=== PATIENT | female | born 1955 | race Caucasian/White ===

== ENCOUNTER → 2017-06-17 | Outpatient (CLI) | payer BC ==
[2015-03-03 16:50] VITALS: BP 137/67
--- NOTE | 2017-06-17 14:42 | MRI ---
MRI SPINE LUMBAR WITHOUT CONTRAST CLINICAL HISTORY: 62-year-old female with low back pain and bilateral radicular symptoms. COMPARISON: None. Technique: Multiplanar, multisequence MRI images of the lumbar spine were obtained without the admin istration of contrast. FINDINGS: The most caudad, fully-formed intervertebral disc will be labeled L5-S1 for the purpose of this dictation. Straightening of the lumbar lordosis as imaged. Alignment is maintained. Vertebral beronica dy heights are preserved with type 2 endplate changes anteriorly L2-L4 and posteriorly L5-S1. Remaini ng marrow signal is normal. Mild loss of disc signal L5-S1 with remaining disc height and signal pres erved. Cord signal is normal. The conus medullaris is normal in signal characteristics and morphology and terminates at the L2-L3 level. T11-T12: No central canal or neural foraminal stenosis. T12-L1: No central canal or neural foraminal stenosis. L1-L2: Mild symmetric disc bulge and facet hypertrophy without central canal or neural foraminal sten osis. L2-L3: Moderate symmetric disc bulge with mild facet hypertrophy without central canal or neural fora yenny stenosis. L3-L4: Large symmetric disc bulge with moderate to severe facet hypertrophy and thickening of the lig amentum flavum. Disc bulge contacts the ventral aspect of the exiting right L3 nerve root. No signifi cant central canal or neural foraminal stenosis. L4-L5: Large symmetric disc bulge with severe facet hypertrophy and thickening of ligamentum flavum. Moderate bilateral subarticular recess stenosis with mild bilateral neural foraminal stenosis. Disc b ulge and focal flavum contact the ventral dorsal aspect of the exiting L4 nerve roots bilaterally. Di sc bulge contacts the ventral aspect of the transiting L5 nerve roots bilaterally. L5-S1: Report large symmetric disc bulge with severe facet hypertrophy and thickened flavum combine t o produce severe bilateral subarticular recess stenosis with moderate bilateral neural foraminal sten osis. There is contact of the dorsal aspects of the exiting L5 nerve roots bilaterally as well as the bilateral dorsal aspect the transiting S1 nerve roots. Paraspinous soft tissues are unremarkable. IMPRESSION: 1. 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 2. See level by level descriptions above. Reported By:
== END | disposition home or self-care (01) | DRG 552 ==
LOC: RAD 12:28
PROVIDERS: ATTEND Internal Medicine
DX: M51.16 Intervertebral disc disorders with radiculopathy, lumbar region (principal); M51.26 Other intervertebral disc displacement, lumbar region; M48.061 Spinal stenosis, lumbar region without neurogenic claudication
CPT/HCPCS: 72148

== ENCOUNTER 2017-07-08 19:21 | Emergency (ER) | payer BC ==
[2017-07-08 19:26] VITALS: BMI 30.7
[2017-07-08] MEDS ORDERED: ZOFRAN INJ 4 MG VIAL IVP ONE (20:17)
[2017-07-08] MEDS ORDERED: NORFLEX INJ IM ONE (20:17)
[2017-07-08] MEDS ORDERED: MORPHINE SULFATE INJ 4 MG IVP ONE (20:17)
--- NOTE | 2017-07-08 20:21 | DR.GENAD ---
HPI - HPI Comment HPI Comment: HISTORY BELOW. - Complaint/Symptoms Chief Complaint Doctors Comments: EASY BRUISING AND SKIN TEAR RT HAND. PAIN AND NUMBNESS EXTREMITIES AND LOW BACK PAQIN. WORSE TODAY. BP ELEVATED. Chief Complaint:: PT STATES THAT SHE HAS "BRUISES AND SCRAPES" ALL OVER HER ARMS. BRUISES NOTED ON BILATERAL ARMS AND SKIN TEAR NOTED ON LT ANTERIOR HAND. PT C/O RT ARM BEING NUMB. PT STATES THAT SHE HAS BEEN HAVING THIS PROBLEM FOR MONTHS AND HER PCP TOLD HER IT WAS BECAUSE HER SKIN IS SO THIN. PT STATES SHE HAS BEEN WORKING AT THE [employer] FOR 3 DAYS AND NOW HER BACK HURTS HAD MRI 3 WEEKS AGO AND WAS TOLD SHE HAD BULGING DISCS AND HAS BEEN UNABLE TO GET FOLLOW UP. Self Treatment fo Chief Complaint: PT STATES THAT SHE DID TAKE HER LISINOPRIL THIS AM - Nurses notes reviewed Nurses Notes Review: Yes - Source History Provided: Patient - Mode of Arrival Mode of Arrival: Ambulatory - Timing Onset of Chief Complaint: 07/08/17 Came on: Suddenly - Duration Duration: Constant Duration: Hours - Severity Severity: Moderate PMH - PMH Past Medical History: Yes Past Medical History: Anxiety, Arthritis, Depression, Dyslipidemia, GERD, Hypertension Past Surgical History: Yes Surgical History: Hysterectomy, Other - Family History History of Family Medical Conditions: Yes Family Medical History: Diabetes Mellitus, [place], Hypertension - infectious screening Have you traveled outside the country in the last 6 months?: No ROS - Review of Systems Constitutional: No Symptoms Reported Eyes: No Symptoms Reported ENTM: No Symptoms Reported Respiratoy: No Symptoms Reported Cardiovascular: No Symptoms Reported Gastrointestinal/Abdominal: No Symptoms Reported Genitourinary: No Symptoms Reported Neurological: Headache, Numbness, Paresthesia Musculoskeletal: Hand Integumentary: Wound (SKIN TEAR LEFT HAND.), Bruises Endocrine: No Symptoms Reported All Other Systems: Reviewed and Negative PE - Vital Signs Vitals: Temperature 99.8 F Pulse Rate [Left Radial] 73 Pulse Rate 103 Respiratory Rate 18 Blood Pressure [Left Arm] 161/73 Blood Pressure 211/92 O2 Sat by Pulse Oximetry 96 - General Limitations: No Limitations General Appearance: Alert - Head Head Exam: Normal Inspection - Eyes Eye exam: Normal Appearance - ENT ENT Exam: Normal External Ear Exam, Mucous Membranes Moist TM/Canal Exam: Bilateral Normal Nose Exam: Normal Nose Exam Mouth Exam: Normal Inspection Throat Exam: Normal Inspection - Neck Neck Exam: Normal Inspection - Chest Chest Inspection: Symmetric Chest Wall Rise - Respiratory Respiratory Exam: Normal Lung Sounds Bilat Respiratory Exam: Bilateral Clear to Auscultation - Cardiovascular Cardiovascular Exam: Regular Rate, Normal Rhythm, Normal Heart Sounds - Abdominal Exam Abdominal Exam: Normal Inspection - Extremities Extremities Exam: Tenderness (SKIN TEAR BEHIND LT HAND.) - Back Back Exam: Normal Inspection - Neurologic Neurological Exam: Alert, Oriented X3 - Psychiatric Psychiatric Exam: Normal Affect, Normal Mood - Skin Skin Exam: Rash (SKIN TEAR), Erythema MDM - Additional Information Additional Information Obtained From: Family - Differential Diagnosis Differential Diagnosis: SKIN TEARS, MULTIPLE BRUISES, LOW BACK Course - Treatment Treatment: SEE ORDERS. - Education/Counseling Education/Counseling: Patient, Family, Education Educated On: Treatment, Diagnosis, Needs for Follow Up ROR - Labs Reviewed Laboratory Results Reviewed?: Yes Result Diagrams: 07/08/17 19:38 07/08/17 19:38 Laboratory: WBC 14.4 X10^3/uL (3.6-10.0) H 07/08/17 19:38 RBC 4.80 X10^6/uL (3.5-5.4) 07/08/17 19:38 Hgb 14.9 g/dL (12.0-16.0) 07/08/17 19:38 Hct 44.5 % (36.0-47.0) 07/08/17 19:38 MCV 92.7 fL (80.0-100.0) 07/08/17 19:38 MCH 31.0 pg (27.0-34.0) 07/08/17 19:38 MCHC 33.5 g/dL (33.0-35.0) 07/08/17 19:38 RDW 14.3 % (11.6-16.5) 07/08/17 19:38 Plt Count 220 X10^3/uL (150.0-450.0) 07/08/17 19:38 MPV 10.5 fL (7.4-11.0) 07/08/17 19:38 Neut % 63.8 % (42.0-75.0) 07/08/17 19:38 Lymph % 26.5 % (21.0-51.0) 07/08/17 19:38 [place] % 8.1 % (0.0-13.0) 07/08/17 19:38 Eos % 0.9 % (0.9-2.9) 07/08/17 19:38 Baso % 0.7 % (0.2-1.0) 07/08/17 19:38 Neut # 9.2 x10^3/uL (2.2-4.8) H 07/08/17 19:38 Lymph # 3.8 X10^3/uL (1.3-2.9) H 07/08/17 19:38 [place] # 1.2 x10^3/uL (0.3-0.8) H 07/08/17 19:38 Eos # 0.1 x10^3/uL (0.0-0.2) 07/08/17 19:38 Baso # 0.1 X10^3/uL (0.0-0.1) 07/08/17 19:38 Absolute Nucleated RBC 0.1 /100WBC 07/08/17 19:38 Sodium 140 mmol/L (136-145) 07/08/17 19:38 Corrected Sodium 141 mmol/L (136-145) 07/08/17 19:38 Potassium 3.7 mmol/L (3.5-5.1) 07/08/17 19:38 Chloride 104 mmol/L (98-107) 07/08/17 19:38 Carbon Dioxide 23.9 mmol/L (21-32) 07/08/17 19:38 BUN 25 mg/dL (7-18) H 07/08/17 19:38 Creatinine 1.59 mg/dL (0.55-1.02) H 07/08/17 19:38 Est GFR (MDRD) Af Amer 42 (>60) L 07/08/17 19:38 Est GFR (MDRD) Non-Af 35 (>60) L 07/08/17 19:38 Glucose 134 mg/dL (65-99) H 07/08/17 19:38 Calcium 9.7 mg/dL (8.5-10.1) 07/08/17 19:38 Corrected Calcium TNP 07/08/17 19:38 Total Bilirubin 0.30 mg/dL (0.2-1.0) 07/08/17 19:38 AST 47 Units/L (15-37) H 07/08/17 19:38 ALT 35 Units/L (12-78) 07/08/17 19:38 Alkaline Phosphatase 124 Units/L (46-116) H 07/08/17 19:38 Total Protein 8.4 g/dL (6.4-8.2) H 07/08/17 19:38 Albumin 4.1 g/dL (3.4-5.0) 07/08/17 19:38 Globulin 4.3 g/dL (2.5-4.5) 07/08/17 19:38 Albumin/Globulin Ratio 1.0 Ratio (1.1-2.1) L 07/08/17 19:38 Specimen Type Clean catch urine 07/08/17 20:54 Urine Color Yellow (YELLOW) 07/08/17 20:54 Urine Appearance Slightly hazy (CLEAR) 07/08/17 20:54 Urine pH 5.0 (5.0 - 8.0) 07/08/17 20:54 Ur Specific [place] 1.025 (1.000-1.030) 07/08/17 20:54 Urine Protein 3+ (NEGATIVE) 07/08/17 20:54 Urine Glucose (UA) Negative (NEGATIVE) 07/08/17 20:54 Urine Ketones Negative (NEGATIVE) 07/08/17 20:54 Urine Occult Blood 4+ (NEGATIVE) 07/08/17 20:54 Urine Nitrite Negative (NEGATIVE) 07/08/17 20:54 Urine Bilirubin Negative (NEGATIVE) 07/08/17 20:54 Urine Urobilinogen Normal (NORMAL) 07/08/17 20:54 Ur Leukocyte Esterase Negative (NEGATIVE) 07/08/17 20:54 Urine RBC 1 - 3 /HPF (NEGATIVE) 07/08/17 20:54 Urine WBC 0 - 2 /HPF (NEGATIVE) 07/08/17 20:54 Ur Squamous Epith Cells Moderate /HPF (NEGATIVE) 07/08/17 20:54 Urine Bacteria Trace /HPF (NEGATIVE) 07/08/17 20:54 Ur Culture Indicated? No/not indicated 07/08/17 20:54 Urine Opiates Screen Positive (NEG=<300) A 07/08/17 20:54 Urine Methadone Screen Negative (NEG=<300) 07/08/17 20:54 Ur Barbiturates Screen Negative (NEG=<200) 07/08/17 20:54 Ur Phencyclidine Scrn Negative (NEG=<25) 07/08/17 20:54 Ur Amphetamines Screen Negative (NEG=<1000) 07/08/17 20:54 U Benzodiazepines Scrn Positive (NEG=<200) A 07/08/17 20:54 Urine Cocaine Screen Negative (NEG=<300) 07/08/17 20:54 U Marijuana (THC) Screen Negative (NEG=<50) 07/08/17 20:54 - Diagnosis Discharge Problem: Easy bruising Back pain Qualifiers: Back pain location: low back pain Chronicity: acute Back pain laterality: bilateral Sciatica presence: with sciatica Sciatica laterality: bilateral sciatica Qualified Code(s): M54.42 - Lumbago with sciatica, left side; M54.41 - Lumbago with sciatica, right side; M54.41 - Lumbago with sciatica, right side Skin tear of left hand without complication Qualifiers: Encounter type: initial encounter Qualified Code(s): S61.412A - Laceration without foreign body of left hand, initial encounter - Discharge Plan Disposition: 01 HOME, SELF-CARE Condition: Stable - Follow ups/Referrals Follow ups/Referrals: SAIGE PATRICIA [Primary Care Provider] - 3 days - Instructions Instructions: Back Pain, Adult, [id number] Additional Instructions: RETURN TO ED IF WORSE.
[2017-07-08] MEDS ORDERED: NORFLEX INJ ONE (20:22)
[2017-07-08] MEDS ORDERED: ZOFRAN INJ 4 MG VIAL ONE (20:22)
[2017-07-08] MEDS ORDERED: MORPHINE SULFATE INJ 4 MG ONE (20:23)
[2017-07-08 20:58] LABS: BASOPHILS # (AUTO) 0.1 X10^3/uL (0.0-0.1); BASOPHILS % (AUTO) 0.7 % (0.2-1.0); EOSINOPHILS # (AUTO) 0.1 x10^3/uL (0.0-0.2); EOSINOPHILS % (AUTO) 0.9 % (0.9-2.9); HEMATOCRIT 44.5 % (36.0-47.0); HEMOGLOBIN 14.9 g/dL (12.0-16.0); LYMPHOCYTES # (AUTO) 3.8 X10^3/uL (1.3-2.9); LYMPHOCYTES % (AUTO) 26.5 % (21.0-51.0); MEAN CORPUSCULAR HGB CONC 33.5 g/dL (33.0-35.0); MEAN CORPUSCULAR VOLUME 92.7 fL (80.0-100.0); MEAN PLATELET VOLUME 10.5 fL (7.4-11.0); MONOCYTES # (AUTO) 1.2 x10^3/uL (0.3-0.8); MONOCYTES % (AUTO) 8.1 % (0.0-13.0); NEUTROPHILS # (AUTO) 9.2 x10^3/uL (2.2-4.8); NEUTROPHILS % (AUTO) 63.8 % (42.0-75.0); PLATELET COUNT 220 X10^3/uL (150.0-450.0); RED CELL DISTRIBUTION WIDTH 14.3 % (11.6-16.5); WHITE BLOOD COUNT 14.4 X10^3/uL (3.6-10.0)
[2017-07-08 21:06] LABS: ALANINE AMINOTRANSFERASE 35 Units/L (12-78); ALBUMIN 4.1 g/dL (3.4-5.0); ALKALINE PHOSPHATASE 124 Units/L (46-116); ASPARTATE AMINO TRANSFERASE 47 Units/L (15-37); BLOOD UREA NITROGEN 25 mg/dL (7-18); CALCIUM 9.7 mg/dL (8.5-10.1); CARBON DIOXIDE 23.9 mmol/L (21-32); CHLORIDE 104 mmol/L (98-107); COR NA(FOR HYPERGLY) 141 mmol/L (136-145); CREATININE 1.59 mg/dL (0.55-1.02); SODIUM 140 mmol/L (136-145); TOTAL PROTEIN 8.4 g/dL (6.4-8.2); eGFR BLACK RACES 42 (>60); eGFR NON BLACK RACES 35 (>60)
[2017-07-08 21:14] LABS: BILIRUBIN,URINE NEGATIVE (NEGATIVE); BLOOD/HEMOGLOBIN,URINE 4+ (NEGATIVE); GLUCOSE, URINE NEGATIVE (NEGATIVE); KETONES,URINE NEGATIVE (NEGATIVE); LEUKOCYTE ESTERASE ,URINE NEGATIVE (NEGATIVE); NITRITES,URINE NEGATIVE (NEGATIVE); PROTEIN,URINE 3+ (NEGATIVE); UROBILINOGEN,URINE NORMAL (NORMAL)
[2017-07-08 21:25] LABS: APPEARANCE,URINE SLIGHTLY HAZY (CLEAR); COLOR,URINE YELLOW (YELLOW)
[2017-07-08 21:26] LABS: SQUAMOUS EPITHELIAL CELL,UR MODERATE /HPF (NEGATIVE)
[2017-07-08 21:27] LABS: BACTERIA,URINE TRACE /HPF (NEGATIVE)
[2017-07-08 21:46] VITALS: BP 161/73
== END 2017-07-08 21:45 | disposition home or self-care (01) ==
LOC: ER 19:31
DX: R23.8 Other skin changes (principal); S61.412A Laceration without foreign body of left hand, initial encounter; M54.42 Lumbago with sciatica, left side; Y33.XXXA Other specified events, undetermined intent, initial encounter; Y92.69 Other specified industrial and construction area as the place of occurrence of the external cause
CPT/HCPCS: 36415; 80053; 80307; 81001; 85025; 96365; 96372; 96374; 96375; 99282; 99283; A4222; G0434; J2270; J2360; J2405

== ENCOUNTER 2018-08-08 09:49 | Observation (INO) ==
[2018-08-08 10:06] VITALS: BMI 39.9
--- NOTE | 2018-08-08 10:25 | CT ---
HISTORY: Patient fell last night and now has confusion Study: CT brain without contrast Comparison: 07/16/2012. Technique: Multiple axial images of the brain were obtained from the skull base to the vertex without administration of IV contrast. Coronal and sagittal images are also reviewed. Dose reduction techniques utilized automatic exposure control. Findings: No acute intraparenchymal hemorrhage or mass can be identified. No extra-axial fluid collections are seen. No alteration in the attenuation of the brain parenchyma can be identified to suggest acute or subacute ischemic change. The ventricular system is symmetric and nondilated. There is chronic periventricular white matter disease observed and age-appropriate generalized atrophy. IMPRESSION: No acute intracranial process can be identified. 2. Chronic periventricular white matter disease likely on the basis of small vessel ischemic change. 3. Age-appropriate atrophic changes are seen. Reported By:
[2018-08-08] MEDS ORDERED: NARCAN INJ IVP ONE ×2 (10:51→14:31)
--- NOTE | 2018-08-08 10:51 | DR.GENAD ---
HPI Time Seen Time Seen by Provider: 08/08/18 10:35 PCP Primary Care Physician: forrest Complaint/Symptoms Chief Complaint Doctors Comments: 63 y/o female presented via EMS with altered mental status. She had some form of spinal surgery 2 days ago in [place]. She stayed overnight there and came home yesterday. She was fine in the day time but fell at night while getting something out of the drawer. She went to sleep but hasn't been quite aroused or herself this morning. Amongst her home meds. looked at she had a bottle of Percocet, Xanax, Tizanidine and Soma. The family states that she hasn't taken any medications since 12 midnight. Chief Complaint:: PT FELL SOMETIME LAST NIGHT AND NOW HAS CONFUSION. SHE DOES NOT COMPLAIN OF ANY PAIN EXCEPT TO HER BACK. CONTINUES TO MUMBLE, "LOWER BACK" Nurses notes reviewed Nurses Notes Review: Yes Source History Provided: Patient and EMS Mode of Arrival Mode of Arrival: EMS Timing Onset of Chief Complaint: 08/08/18 PMH PMH Past Medical History: Yes Past Medical History: Anxiety, Arthritis, Depression, Dyslipidemia, GERD and Hypertension Past Surgical History: Yes Surgical History: Hysterectomy and Other Past Surgical History Comment: BACK Family History History of Family Medical Conditions: Yes Family Medical History: Diabetes Mellitus, [place] and Hypertension Social History Type of Tobacco Use: Cigarettes Do you use any recreational Drugs:: No Lives With: Family Lives Where: Home infectious screening In the last 2 months have you had wt loss of >10#?: NICKY Have you had fever, night sweats or hemotysis?: NICKY Have you traveled outside the country in the last 6 months?: No Isolation: Standard ROS Review of Systems Constitutional: No Symptoms Reported Eyes: No Symptoms Reported ENTM: No Symptoms Reported Respiratoy: No Symptoms Reported Cardiovascular: No Symptoms Reported Gastrointestinal/Abdominal: No Symptoms Reported Genitourinary: No Symptoms Reported Neurological: Other (confused) Musculoskeletal: No Symptoms Reported Integumentary: No Symptoms Reported Hematologic/Lymphatic: No Symptoms Reported Endocrine: No Symptoms Reported Psychiatric: No Symptoms Reported All Other Systems: Reviewed and Negative PE Vital Signs Vitals: Temperature 99.9 F Pulse Rate [Right] 98 Pulse Rate 104 Respiratory Rate 22 Blood Pressure [Left Arm] 148/75 Blood Pressure 119/57 O2 Sat by Pulse Oximetry 95 General Limitations: Altered Mental Status General Appearance: In No Apparent Distress and Lethargic Head Head Exam: Normal Inspection and Normocephalic Eyes Eye exam: Normal Appearance and EOMI ENT ENT Exam: Normal Exam, Normal Oropharynx and Mucous Membranes Moist Neck Neck Exam: Normal Inspection and Trachea Midline Chest Chest Inspection: Normal Inspection and Symmetric Chest Wall Rise Respiratory Respiratory Exam: Normal Lung Sounds Bilat Cardiovascular Cardiovascular Exam: Regular Rate, Normal Rhythm, Normal Heart Sounds, +S1 and +S2 Abdominal Exam Abdominal Exam: Normal Inspection, Normal Bowel Sounds and Soft Extremities Extremities Exam: Normal Inspection Back Back Exam: Normal Inspection Neurologic Neurological Exam: Other (Lethagic) Skin Skin Exam: Warm ROR Labs Reviewed Laboratory Results Reviewed?: Yes Result Diagrams: 08/08/18 10:50 08/08/18 10:50 Laboratory: WBC 15.7 X10^3/uL (3.6-10.0) H 08/08/18 10:50 RBC 4.01 X10^6/uL (3.5-5.4) 08/08/18 10:50 Hgb 12.4 g/dL (12.0-16.0) 08/08/18 10:50 Hct 37.5 % (36.0-47.0) 08/08/18 10:50 MCV 93.6 fL (80.0-100.0) 08/08/18 10:50 MCH 31.1 pg (27.0-34.0) 08/08/18 10:50 MCHC 33.2 g/dL (33.0-35.0) 08/08/18 10:50 RDW 13.8 % (11.6-16.5) 08/08/18 10:50 Plt Count 198 X10^3/uL (150.0-450.0) 08/08/18 10:50 MPV 10.1 fL (7.4-11.0) 08/08/18 10:50 Neut % (Auto) 71.2 % (42.0-75.0) 08/08/18 10:50 Lymph % (Auto) 17.6 % (21.0-51.0) L 08/08/18 10:50 [place] % (Auto) 10.5 % (0.0-13.0) 08/08/18 10:50 Eos % (Auto) 0.0 % (0.9-2.9) L 08/08/18 10:50 Baso % (Auto) 0.7 % (0.2-1.0) 08/08/18 10:50 Neut # (Auto) 11.2 x10^3/uL (2.2-4.8) H 08/08/18 10:50 Lymph # (Auto) 2.8 X10^3/uL (1.3-2.9) 08/08/18 10:50 [place] # (Auto) 1.6 x10^3/uL (0.3-0.8) H 08/08/18 10:50 Eos # (Auto) 0.0 x10^3/uL (0.0-0.2) 08/08/18 10:50 Baso # (Auto) 0.1 X10^3/uL (0.0-0.1) 08/08/18 10:50 Absolute Nucleated RBC 0.0 /100WBC 08/08/18 10:50 Sodium 138 mmol/L (136-145) 08/08/18 10:50 Corrected Sodium 141 mmol/L (136-145) 08/08/18 10:50 Potassium 4.5 mmol/L (3.5-5.1) 08/08/18 10:50 Chloride 103 mmol/L (98-107) 08/08/18 10:50 Carbon Dioxide 22.8 mmol/L (21-32) 08/08/18 10:50 BUN 30 mg/dL (7-18) H 08/08/18 10:50 Creatinine 1.79 mg/dL (0.55-1.02) H 08/08/18 10:50 Est GFR (MDRD) Af Amer 37 (>60) L 08/08/18 10:50 Est GFR (MDRD) Non-Af 30 (>60) L 08/08/18 10:50 Glucose 206 mg/dL (65-99) H 08/08/18 10:50 Lactic Acid 1.6 mmol/L (0.4-2.0) 08/08/18 13:19 Calcium 9.1 mg/dL (8.5-10.1) 08/08/18 10:50 Corrected Calcium 9.9 mg/dL (8.5-10.1) 08/08/18 10:50 Total Bilirubin 0.40 mg/dL (0.2-1.0) 08/08/18 10:50 AST 28 Units/L (15-37) 08/08/18 10:50 ALT 17 Units/L (12-78) 08/08/18 10:50 Alkaline Phosphatase 87 Units/L (46-116) 08/08/18 10:50 Total Protein 7.5 g/dL (6.4-8.2) 08/08/18 10:50 Albumin 3.0 g/dL (3.4-5.0) L 08/08/18 10:50 Globulin 4.5 g/dL (2.5-4.5) 08/08/18 10:50 Albumin/Globulin Ratio 0.7 Ratio (1.1-2.1) L 08/08/18 10:50 Specimen Type Catherized urine 08/08/18 12:47 Urine Color Yellow (YELLOW) 08/08/18 12:47 Urine Appearance Clear (CLEAR) 08/08/18 12:47 Urine pH 5.0 (5.0 - 8.0) 08/08/18 12:47 Ur Specific [place] 1.015 (1.000-1.030) 08/08/18 12:47 Urine Protein 1+ (NEGATIVE) 08/08/18 12:47 Urine Glucose (UA) Negative (NEGATIVE) 08/08/18 12:47 Urine Ketones Negative (NEGATIVE) 08/08/18 12:47 Urine Occult Blood 4+ (NEGATIVE) 08/08/18 12:47 Urine Nitrite Negative (NEGATIVE) 08/08/18 12:47 Urine Bilirubin Negative (NEGATIVE) 08/08/18 12:47 Urine Urobilinogen Normal (NORMAL) 08/08/18 12:47 Ur Leukocyte Esterase Negative (NEGATIVE) 08/08/18 12:47 Urine RBC 0-2 /HPF (NONE SEEN) 08/08/18 12:47 Urine WBC 0-2 /HPF (NONE SEEN) 08/08/18 12:47 Ur Squamous Epith Cells Rare /HPF (NEGATIVE) 08/08/18 12:47 Amorphous Sediment Trace /HPF (NEGATIVE) 08/08/18 12:47 Urine Bacteria Trace /HPF (NEGATIVE) 08/08/18 12:47 Ur Culture Indicated? No/not indicated 08/08/18 12:47 Urine Opiates Screen Positive (NEG=<300) A 08/08/18 12:48 Urine Methadone Screen Negative (NEG=<300) 08/08/18 12:48 Ur Barbiturates Screen Negative (NEG=<200) 08/08/18 12:48 Ur Phencyclidine Scrn Negative (NEG=<25) 08/08/18 12:48 Ur Amphetamines Screen Negative (NEG=<1000) 08/08/18 12:48 U Benzodiazepines Scrn Positive (NEG=<200) A 08/08/18 12:48 Urine Cocaine Screen Negative (NEG=<300) 08/08/18 12:48 U Marijuana (THC) Screen Negative (NEG=<50) 08/08/18 12:48 Influenza Type A (PCR) Negative (NEGATIVE) 08/08/18 21:15 Influenza Type B (PCR) Negative (NEGATIVE) 08/08/18 21:15 Other Results Comments: Radiologist read: Brain CT Scan w/o: No acute intracranial process can be identified. Lumbar CT Scan w/o: no acute fracture or malalignment. expected postsurgical changes of the paraspinous soft tissues at the level of the spinous process fusion at L4-S1. Multilevel degenerative changes. Diagnosis Discharge Problem: Blood pressure elevated without history of HTN Altered mental status Qualifiers: Altered mental status type: stupor Qualified Code(s): R40.1 - Stupor Fever Qualifiers: Fever type: unspecified Qualified Code(s): R50.9 - Fever, unspecified
[2018-08-08] MEDS ORDERED: NARCAN INJ ONE (10:52)
[2018-08-08 11:01] LABS: BASOPHILS # (AUTO) 0.1 X10^3/uL (0.0-0.1); BASOPHILS % (AUTO) 0.7 % (0.2-1.0); HEMATOCRIT 37.5 % (36.0-47.0); HEMOGLOBIN 12.4 g/dL (12.0-16.0); LYMPHOCYTES # (AUTO) 2.8 X10^3/uL (1.3-2.9); LYMPHOCYTES % (AUTO) 17.6 % (21.0-51.0); MEAN CORPUSCULAR HEMOGLOBIN 31.1 pg (27.0-34.0); MEAN CORPUSCULAR HGB CONC 33.2 g/dL (33.0-35.0); MEAN CORPUSCULAR VOLUME 93.6 fL (80.0-100.0); MEAN PLATELET VOLUME 10.1 fL (7.4-11.0); MONOCYTES # (AUTO) 1.6 x10^3/uL (0.3-0.8); MONOCYTES % (AUTO) 10.5 % (0.0-13.0); NEUTROPHILS # (AUTO) 11.2 x10^3/uL (2.2-4.8); NEUTROPHILS % (AUTO) 71.2 % (42.0-75.0); PLATELET COUNT 198 X10^3/uL (150.0-450.0); RED BLOOD COUNT 4.01 X10^6/uL (3.5-5.4); RED CELL DISTRIBUTION WIDTH 13.8 % (11.6-16.5); WHITE BLOOD COUNT 15.7 X10^3/uL (3.6-10.0)
[2018-08-08 11:13] LABS: CALCIUM 9.1 mg/dL (8.5-10.1); CARBON DIOXIDE 22.8 mmol/L (21-32); COR CA(FOR HYPOALB) 9.9 mg/dL (8.5-10.1); CREATININE 1.79 mg/dL (0.55-1.02); TOTAL PROTEIN 7.5 g/dL (6.4-8.2)
--- NOTE | 2018-08-08 11:38 | RAD ---
Exam: Portable chest History: 63-year-old female with shortness of breath. Comparison: Previous chest radiograph from 03/02/2015 Findings: Cardiomegaly is present though no evidence of significant vascular congestion. Minimal atelectasis is seen at the left base. Otherwise lungs are clear. No significant effusion on either side. Bony thorax is unremarkable. Impression: 1. Cardiomegaly though without significant vascular congestion. 2. Left basilar atelectasis Reported By:
[2018-08-08] MEDS ORDERED: NORCO 10/325 TAB PO ONE (12:58)
[2018-08-08] MEDS ORDERED: NORCO 10/325 TAB ONE (13:00)
[2018-08-08 13:06] LABS: BILIRUBIN,URINE NEGATIVE (NEGATIVE); BLOOD/HEMOGLOBIN,URINE 4+ (NEGATIVE); GLUCOSE, URINE NEGATIVE (NEGATIVE); KETONES,URINE NEGATIVE (NEGATIVE); LEUKOCYTE ESTERASE ,URINE NEGATIVE (NEGATIVE); NITRITES,URINE NEGATIVE (NEGATIVE); PROTEIN,URINE 1+ (NEGATIVE); UROBILINOGEN,URINE NORMAL (NORMAL)
[2018-08-08 13:18] LABS: APPEARANCE,URINE CLEAR (CLEAR); COLOR,URINE YELLOW (YELLOW)
[2018-08-08 13:19] LABS: AMORPHOUS SEDIMENT,UR TRACE /HPF (NEGATIVE); BACTERIA,URINE TRACE /HPF (NEGATIVE); RBC,URINE 0-2 /HPF (NONE SEEN); SQUAMOUS EPITHELIAL CELL,UR RARE /HPF (NEGATIVE)
[2018-08-08] MEDS ORDERED: ROMAZICON INJ 0.5 MG IVP ONE (14:31)
--- NOTE | 2018-08-08 18:07 | CT ---
CT LUMBAR SPINE WITHOUT CLINICAL HISTORY: 63-year-old female status post decompression/laminectomy 2 days ago presents with back pain. COMPARISON: MR lumbar spine 06/17/2017. TECHNIQUE: Multiple, noncontrasted axial CT images were obtained from the thoracolumbar junction to the sacrum and reconstructed in the sagittal and coronal planes. FINDINGS: The most caudad, fully-formed intervertebral disc will be labeled L5-S1 for the purpose of this dictation and in keeping with prior imaging. Straightening of the lumbar lordosis as imaged. There is preservation of vertebral body and disc space height. Status post fusion of spinous processes L4-S1 with postoperative changes of the paraspinous soft tissues to include scattered emphysema and edema without fluid collection. No evidence of hardware failure. T12-L1: No central canal or foraminal stenosis. L1-L2: No central canal or neural foraminal stenosis. L2-L3: Disc bulge with facet arthropathy narrowing canal 11.5 mm without foraminal stenosis. L3-L4: Disc bulge with severe facet arthropathy narrows canal approximately 7 mm. No significant foraminal stenosis. L4-L5: Large disc bulge and facet arthropathy narrows canal at 10.6 mm. Mild bilateral neural foraminal stenosis. L5-S1: Vacuum disc with disc bulge and severe facet arthropathy. Central canal measures 10.1 mm. Moderate to severe bilateral foraminal stenosis. IMPRESSION: 1. No acute fracture or malalignment. 2. Expected postsurgical changes of the paraspinous soft tissues at the level of the spinous process fusion L4-S1. 3. Multilevel degenerative change as described above. Reported By:
[2018-08-08] MEDS ORDERED: TYLENOL SUPP 650 MG PR ONE (19:30)
[2018-08-08] MEDS ORDERED: NS 1000 ML 1,000 ML ONE (19:31)
[2018-08-08] MEDS ORDERED: TYLENOL SUPP 650 MG ONE (19:31)
[2018-08-08] MEDS ORDERED: TORADOL 30 MG VIAL ONE (20:47)
[2018-08-08] MEDS ORDERED: TORADOL 30 MG VIAL IVP ONE (20:54)
[2018-08-08] MEDS ORDERED: NORMODYNE INJ 100 MG VIAL IVP ONE (20:54)
[2018-08-08] MEDS ORDERED: MOTRIN TAB 600 MG PO ONE ×2 (22:55→22:56)
[2018-08-08] MEDS ORDERED: NORMODYNE INJ 20 MG VIAL IVP PRN (23:51)
[2018-08-08] MEDS ORDERED: TORADOL 15 MG VIAL IVP PRN (23:51)
[2018-08-08] MEDS ORDERED: TYLENOL 325 MG TAB PO PRN (23:51)
[2018-08-09] MEDS ORDERED: OFIRMEV IV 1000 MG VIAL 1,000 MG/100 ML VIAL IV PRN (00:49)
[2018-08-09] MEDS ORDERED: OFIRMEV IV 1000 MG VIAL 1,000 MG/100 ML VIAL IV ONE (02:10)
[2018-08-09] MEDS ORDERED: ZANAFLEX PO PRN (03:30)
[2018-08-09] MEDS ORDERED: VANCOMYCIN HCL 1 GM VIAL 1 G in D5W 250 ML IV 250 ML IV SCH (03:33)
[2018-08-09] MEDS ORDERED: D5W 250 ML IV 250 ML IV ONE (03:38)
[2018-08-09] MEDS ORDERED: VANCOMYCIN HCL 1 GM VIAL ONE (03:38)
[2018-08-09] MEDS ORDERED: NS 1000 ML 1,000 ML ONE (03:39)
[2018-08-09] MEDS ORDERED: MORPHINE SULFATE INJ 2 MG INJ ONE (03:39)
[2018-08-09] MEDS: MORPHINE SULFATE INJ 2 MG INJ IVP PRN ×2 (03:53→07:53)
[2018-08-09] MEDS: NS 1000 ML 1,000 ML IV SCH ×2 (03:54→09:37)
[2018-08-09] MEDS ORDERED: PHARMACY CONSULT - VANCOMYCIN XX SCH (04:00)
[2018-08-09 04:10] LABS: BILIRUBIN,URINE NEGATIVE (NEGATIVE); BLOOD/HEMOGLOBIN,URINE 5+ (NEGATIVE); GLUCOSE, URINE NEGATIVE (NEGATIVE); KETONES,URINE NEGATIVE (NEGATIVE); LEUKOCYTE ESTERASE ,URINE 1+ (NEGATIVE); NITRITES,URINE NEGATIVE (NEGATIVE); PROTEIN,URINE 2+ (NEGATIVE); UROBILINOGEN,URINE NORMAL (NORMAL)
[2018-08-09 04:22] LABS: BASOPHILS # (AUTO) 0.1 X10^3/uL (0.0-0.1); BASOPHILS % (AUTO) 0.6 % (0.2-1.0); HEMATOCRIT 35.9 % (36.0-47.0); LYMPHOCYTES # (AUTO) 2.2 X10^3/uL (1.3-2.9); MEAN CORPUSCULAR HEMOGLOBIN 31.4 pg (27.0-34.0); MEAN CORPUSCULAR HGB CONC 33.5 g/dL (33.0-35.0); MEAN CORPUSCULAR VOLUME 93.9 fL (80.0-100.0); MEAN PLATELET VOLUME 10.2 fL (7.4-11.0); MONOCYTES # (AUTO) 1.8 x10^3/uL (0.3-0.8); MONOCYTES % (AUTO) 10.1 % (0.0-13.0); NEUTROPHILS % (AUTO) 77.3 % (42.0-75.0); PLATELET COUNT 156 X10^3/uL (150.0-450.0); RED BLOOD COUNT 3.82 X10^6/uL (3.5-5.4); RED CELL DISTRIBUTION WIDTH 13.9 % (11.6-16.5); WHITE BLOOD COUNT 18.1 X10^3/uL (3.6-10.0)
[2018-08-09 04:28] LABS: ALBUMIN 2.6 g/dL (3.4-5.0); CALCIUM 8.6 mg/dL (8.5-10.1); COR CA(FOR HYPOALB) 9.7 mg/dL (8.5-10.1); CREATININE 1.5 mg/dL (0.55-1.02)
[2018-08-09 04:35] LABS: APPEARANCE,URINE CLEAR (CLEAR); BACTERIA,URINE NEGATIVE /HPF (NEGATIVE); COLOR,URINE YELLOW (YELLOW); SQUAMOUS EPITHELIAL CELL,UR RARE /HPF (NEGATIVE)
[2018-08-09 04:36] LABS: MUCUS,URINE FEW /HPF (NEGATIVE)
[2018-08-09] MEDS: NORCO 7.5/325 MG TAB PO PRN ×4 (06:33→19:48)
[2018-08-09] MEDS ORDERED: ZESTRIL TAB 20 MG ONE (08:00)
[2018-08-09] MEDS: EFFEXOR TAB 37.5 MG (BID DOSING) PO SCH ×2 (08:03→21:36)
[2018-08-09] MEDS: ZESTRIL TAB 20 MG PO SCH (08:03)
[2018-08-09] MEDS: HYDROCHLOROTHIAZIDE 12.5 MG CAP PO SCH (08:03)
[2018-08-09] MEDS: XANAX PO PRN ×2 (08:05→21:36)
[2018-08-09] MEDS: ZOFRAN INJ 4 MG VIAL IVP PRN ×2 (10:00→19:48)
[2018-08-09] MEDS ORDERED: VANCOMYCIN HCL 500 MG VIAL 500 MG, VANCOMYCIN HCL 1 GM VIAL 1 G in NS 250 ML IV 250 ML IV SCH (21:00)
[2018-08-10] MEDS ORDERED: MILK OF MAGNESIA PO PRN (00:35)
[2018-08-10] MEDS: NORCO 7.5/325 MG TAB PO PRN ×2 (02:06→06:10)
[2018-08-10 05:44] LABS: BASOPHILS # (AUTO) 0.1 X10^3/uL (0.0-0.1); BASOPHILS % (AUTO) 0.4 % (0.2-1.0); EOSINOPHILS % (AUTO) 0.3 % (0.9-2.9); HEMATOCRIT 33.9 % (36.0-47.0); HEMOGLOBIN 11.3 g/dL (12.0-16.0); LYMPHOCYTES # (AUTO) 2.5 X10^3/uL (1.3-2.9); LYMPHOCYTES % (AUTO) 17.4 % (21.0-51.0); MEAN CORPUSCULAR HEMOGLOBIN 31.4 pg (27.0-34.0); MEAN CORPUSCULAR HGB CONC 33.3 g/dL (33.0-35.0); MEAN CORPUSCULAR VOLUME 94.4 fL (80.0-100.0); MEAN PLATELET VOLUME 11.2 fL (7.4-11.0); MONOCYTES # (AUTO) 1.1 x10^3/uL (0.3-0.8); MONOCYTES % (AUTO) 7.9 % (0.0-13.0); NEUTROPHILS # (AUTO) 10.7 x10^3/uL (2.2-4.8); PLATELET COUNT 174 X10^3/uL (150.0-450.0); RED BLOOD COUNT 3.59 X10^6/uL (3.5-5.4); RED CELL DISTRIBUTION WIDTH 13.7 % (11.6-16.5); WHITE BLOOD COUNT 14.4 X10^3/uL (3.6-10.0)
[2018-08-10 06:08] LABS: ALBUMIN 2.3 g/dL (3.4-5.0); CALCIUM 8.4 mg/dL (8.5-10.1); CARBON DIOXIDE 24.6 mmol/L (21-32); COR CA(FOR HYPOALB) 9.8 mg/dL (8.5-10.1); CREATININE 1.37 mg/dL (0.55-1.02); TOTAL PROTEIN 6.7 g/dL (6.4-8.2)
[2018-08-10] MEDS: ZOFRAN INJ 4 MG VIAL IVP PRN (06:37)
--- NOTE | 2018-08-10 07:11 | RAD ---
Examination: Portable AP supine chest History: Cough and fever Findings: Normal heart size, lungs essentially clear except for minimal linear atelectasis left lower lung. No consolidation, adenopathy, pneumothorax or pleural fluid. Impression: Minimal left basal atelectasis. Normal otherwise. Reported By:
[2018-08-10] MEDS ORDERED: ZESTRIL TAB 20 MG ONE (08:56)
[2018-08-10] MEDS: ZESTRIL TAB 20 MG PO SCH (08:59)
[2018-08-10] MEDS: EFFEXOR TAB 37.5 MG (BID DOSING) PO SCH (08:59)
[2018-08-10] MEDS: HYDROCHLOROTHIAZIDE 12.5 MG CAP PO SCH (08:59)
[2018-08-10] MEDS: NS 1000 ML 1,000 ML IV SCH (09:31)
[2018-08-10 09:40] VITALS: BP 142/88
[2018-08-10] MEDS ORDERED: FLUVIRIN IM ONE (09:50)
[2018-08-10] MEDS ORDERED: COLACE CAP 100 MG PO SCH (21:00)
[2018-08-11] MEDS ORDERED: PHARMACY COMMENT IV SCH (20:45)
== END 2018-08-10 10:20 | disposition home or self-care (01) ==
LOC: ER 09:49 → ICU 09:49 → MED/SURG 09:49 → ICU 23:42
PROVIDERS: ADMIT Internal Medicine; ATTEND Internal Medicine
DX: Z98.890 Other specified postprocedural states; R50.9 Fever, unspecified; R41.82 Altered mental status, unspecified; W19.XXXA Unspecified fall, initial encounter; Y92.009 Unspecified place in unspecified non-institutional (private) residence as the place of occurrence of the external cause; I10 Essential (primary) hypertension; M54.9 Dorsalgia, unspecified
CPT/HCPCS: 36415; 51702; 70450; 71010; 71045; 72131; 80053; 80307; 81001; 83605; 85025; 87040; 87086; 87502; 90686; 93005; 96365; 96367; 96374; 96375; 99284; A4222; G0378; G0434; J0131; J1885; J2270; J2310; J2405; J3370; J3490; J7030; J7050; J7060